=== PATIENT | male | born 2000 | race Hispanic/Latino ===

== ENCOUNTER 2020-12-30 22:59 | Emergency (ER) | payer MEDICAID ==
[2020-12-31 00:41] VITALS: BP 132/82
--- NOTE | 2020-12-31 05:46 | Emergency Department Report ---
- General Chief Complaint: Back Pain/Injury Stated Complaint: POSS CYST ON TAILBONE Time Seen by Provider: 12/31/20 05:34 Source: patient Mode of arrival: Ambulatory Limitations: No Limitations - History of Present Illness Initial Comments: 20-year-old male presents emerged department complaining of painful sore to the back of his tailbone for the last few days which has been progressively worsening since the onset dull throbbing pain worse with palpation and sitting. No fevers chills or sweats. No nausea vomiting no chest pain palpitation -: Gradual, days(s) (3) - Related Data Previous Rx's Medication Instructions Recorded Last Taken Type Ibuprofen [Motrin 600 MG tab] 600 mg PO Q8H PRN #30 tablet 01/02/16 Unknown Rx Chlorhexidine Gluconate [Hibiclens] 10 ml TP BID #240 liquid 12/31/20 Unknown Rx Sulfamethoxazole/Trimethoprim 1 each PO BID #20 tablet 12/31/20 Unknown Rx [Bactrim Ds] cephALEXin [Keflex] 500 mg PO Q6HR #40 capsule 12/31/20 Unknown Rx Allergies Allergy/AdvReac Type Severity Reaction Status Date / Time No Known Allergies Allergy Unverified 05/13/14 08:14 ED Review of Systems ROS: Stated complaint: POSS CYST ON TAILBONE Other details as noted in HPI Comment: All other systems reviewed and negative ED Past Medical Hx - Past Medical History Previous Medical History?: Yes Hx Hypertension: Yes Hx Asthma: Yes Additional medical history: nose bleeds - Surgical History Past Surgical History?: Yes Additional Surgical History: tubes in ears - Medications Home Medications: Home Medications Medication Instructions Recorded Confirmed Last Taken Type Ibuprofen [Motrin 600 MG tab] 600 mg PO Q8H PRN #30 tablet 01/02/16 Unknown Rx Chlorhexidine Gluconate [Hibiclens] 10 ml TP BID #240 liquid 12/31/20 Unknown Rx Sulfamethoxazole/Trimethoprim 1 each PO BID #20 tablet 12/31/20 Unknown Rx [Bactrim Ds] cephALEXin [Keflex] 500 mg PO Q6HR #40 capsule 12/31/20 Unknown Rx ED Physical Exam - General Limitations: No Limitations General appearance: alert, in no apparent distress - Head Head exam: Present: atraumatic, normocephalic - Eye Eye exam: Present: normal appearance - ENT ENT exam: Present: mucous membranes moist - Neck Neck exam: Present: normal inspection - Respiratory Respiratory exam: Present: normal lung sounds bilaterally. Absent: respiratory distress - Cardiovascular Cardiovascular Exam: Present: regular rate, normal rhythm. Absent: systolic murmur, diastolic murmur, rubs, gallop - GI/Abdominal GI/Abdominal exam: Present: soft, normal bowel sounds - Rectal Rectal exam: Present: deferred - Extremities Exam Extremities exam: Present: normal inspection - Back Exam Back exam: Present: normal inspection - Neurological Exam Neurological exam: Present: alert, oriented X3 - Psychiatric Psychiatric exam: Present: normal affect, normal mood - Skin Skin exam: Present: warm, dry, erythema, other (Tenderness swelling to the tailbone region of the palpable pulses noted area is open and discharge and copious amounts of pus on physical examination. No lymphadenopathy is appreciated. No CVA tenderness no flank pain). Absent: rash, diaphoretic, pallor, abrasion, ecchymosis ED Course Vital Signs 12/31/20 00:39 Temperature 99 F Pulse Rate 65 Respiratory 16 Rate Blood Pressure 132/82 [Right] O2 Sat by Pulse 100 Oximetry ED Medical Decision Making - Medical Decision Making 20-year-old emergency department department with a pulmonary [facility] to [facility] stat ing that he was unable to get a break on his own now that the wound spontaneously began to drain and opened up on the emergency department he requested only to have antibiotics analgesic pain medicine analgesic medication. Incision and drainage was offered but was declined by [facility]. Is been advised all his return precautions Critical care attestation.: If time is entered above; I have spent that time in minutes in the direct care of this critically ill patient, excluding procedure time. ED Disposition Clinical Impression: Pilonidal cyst Disposition: DC-01 TO HOME OR SELFCARE Is pt being admited?: No Does the pt Need Aspirin: No Condition: Stable Instructions: Pilonidal Cyst, Pilonidal Cyst Drainage, Care After Prescriptions: Sulfamethoxazole/Trimethoprim [Bactrim Ds] 1 each PO BID #20 tablet Chlorhexidine Gluconate [Hibiclens] 10 ml TP BID #240 liquid cephALEXin [Keflex] 500 mg PO Q6HR #40 capsule Referrals: SAJAN REED MD [Staff Physician] - 3-5 Days [facility] [Provider Group] - 3-5 Days
[2020-12-31] MEDS ORDERED: HYDROcodone/ACETAMINOPHEN 5-325 MG TAB PO STA (05:49)
== END 2020-12-31 06:33 | disposition home or self-care (01) ==
LOC: ED 22:59
DX: L05.91 Pilonidal cyst without abscess (principal); I10 Essential (primary) hypertension; J45.909 Unspecified asthma, uncomplicated; Z98.890 Other specified postprocedural states
CPT/HCPCS: 99282